=== PATIENT | female | born 1980 | race American Indian/Alaskan Native ===

== ENCOUNTER 2018-12-20 22:53 | Emergency (ER) | payer BC ==
--- NOTE | 2018-12-21 02:07 | Emergency Department Report ---
HPI - General Chief Complaint: Upper Respiratory Infection Time Seen by Provider: 12/21/18 01:37 - HPI HPI: Room 35 The pt is a 38 y/o F p/w a cc of SAMLON. The pt states she's had pressure intermittently in the frontal and bitemporal region of her head for 1 week. Pt denies preceeding trauma. Pt denies URI sxs or fever. The pt states Advil doesnt help. The pt drove herself to the ED and there are no visitors present ED Past Medical Hx - Past Medical History Previous Medical History?: No - Surgical History Past Surgical History?: Yes Additional Surgical History: Fallopian tube removed, cosmetic - Family History Family history: no significant - Social History Smoking Status: Never Smoker Substance Use Type: None (denies illicit drug use), Alcohol (occ) - Medications Home Medications: Home Medications Medication Instructions Recorded Confirmed Last Taken Type Butalb/Acetamin/Caff 50-325-40 2 tab PO Q8HR PRN #20 tablet 12/21/18 Unknown Rx [Fioricet 50-325-40] ED Review of Systems ROS: Stated complaint: LIGHTHEADED Other details as noted in HPI Constitutional: denies: fever Eyes: denies: eye pain ENT: denies: throat pain, congestion Respiratory: no symptoms reported Cardiovascular: denies: chest pain Endocrine: no symptoms reported Gastrointestinal: denies: nausea Genitourinary: denies: dysuria Musculoskeletal: denies: back pain Neurological: headache Physical Exam - Physical Exam Vital Signs: Vital Signs 12/20/18 22:57 Temperature 98.4 F Pulse Rate 106 H Respiratory 18 Rate Blood Pressure 142/80 O2 Sat by Pulse 100 Oximetry Physical Exam: GEN: WD WN F sitting in chair in NAD HEENT: NCAT, EOMI NECK:Trachea midline, no stridor. no carotid bruits CV: rrr no m/r/g Pulm: no resp distress Neuro: GCS 15. CN 2-12 GI SKIN: no diaphoresis MS: no evidence of acute injury ED Course Vital Signs 12/20/18 22:57 Temperature 98.4 F Pulse Rate 106 H Respiratory 18 Rate Blood Pressure 142/80 O2 Sat by Pulse 100 Oximetry ED Medical Decision Making - Radiology Data Radiology results: report reviewed (CT Head), image reviewed (CT Head) [facility] [address] [place] [address] Cat Scan Report Signed Patient: LUIS HERRERA MR#: [id number] : 1980 Acct:[id number] Age/Sex: 38 / F ADM Date: 12/20/18 Loc: ED Attending Dr: Ordering Physician: DIPESH SCOTT MD Date of Service: 12/21/18 Procedure(s): CT head/brain wo con Accession Number(s): [id number] cc: DIPESH SCOTT MD CT head/brain wo con INDICATION / CLINICAL INFORMATION: Frontal, bitemporal pressure. TECHNIQUE: Axial CT imaging of the brain was obtained without contrast. Coronal and sagittal reformatted imaging obtained and reviewed. All CT scans at this location are performed using CT dose reduction for ALARA by means of automated exposure control. COMPARISON: None available. FINDINGS: No intracranial hemorrhage, mass, or midline shift identified. No extra-axial fluid collection or suggestion of acute territorial infarct. Ventricular system and basilar cisterns are unremarkable. Visualized paranasal sinuses are well aerated and clear. IMPRESSION: 1. Negative noncontrasted head CT scan. Signer Name: Randee Tanner MD Signed: 12/21/2018 2:40 AM Workstation Name: [id number] Transcribed By: JR Dictated By: Randee Tanner MD Electronically Authenticated By: Randee Tanner MD Signed Date/Time: 12/21/18239 DD/ 3 TD/TT: - Differential Diagnosis Sinusitis, IC mass, ICH Critical care attestation.: If time is entered above; I have spent that time in minutes in the direct care of this critically ill patient, excluding procedure time. ED Disposition Clinical Impression: Pressure in head Disposition: DC-01 TO HOME OR SELFCARE Is pt being admited?: No Does the pt Need Aspirin: No Condition: Stable Instructions: Acute Headache (ED) Prescriptions: Butalb/Acetamin/Caff 50-325-40 [Fioricet 50-325-40] 2 tab PO Q8HR PRN #20 tablet PRN Reason: Headache Referrals: VENTURA SHARPE MD [Staff Physician] - 3-5 Days (Dr Sharpe is a primary physician. Please follow up with him to be established as a patient) PAULINA BURDICK MD [Staff Physician] - 3-5 Days (Dr Burdick is a neurologist. Please follow up with him for further evaluation) Time of Disposition: 02:54
--- NOTE | 2018-12-21 02:45 | Cat Scan Report ---
CT head/brain wo con INDICATION / CLINICAL INFORMATION: Frontal, bitemporal pressure. TECHNIQUE: Axial CT imaging of the brain was obtained without contrast. Coronal and sagittal reformatted imaging obtained and reviewed. All CT scans at this location are performed using CT dose reduction for ALAR A by means of automated exposure control. COMPARISON: None available. FINDINGS: No intracranial hemorrhage, mass, or midline shift identified. No extra-axial fluid collection or sug gestion of acute territorial infarct. Ventricular system and basilar cisterns are unremarkable. Visualized paranasal sinuses are well aerated and clear. IMPRESSION: 1. Negative noncontrasted head CT scan. Signer Name: Randee Tanner MD Signed: 12/21/2018 2:40 AM Workstation Name: [id number]
[2018-12-21 02:51] LABS: HCG Qualitative,Urine Negative (Negative)
[2018-12-21 03:21] VITALS: BP 141/78
== END 2018-12-21 03:19 | disposition home or self-care (01) ==
LOC: ED 22:53
DX: R51 Headache (principal); Z79.899 Other long term (current) drug therapy
CPT/HCPCS: 70450; 81025; 99284